=== PATIENT | female | born 1950 | race Caucasian/White ===

== ENCOUNTER → 2016-11-18 07:46 | Outpatient (CLI) | payer MEDICARE, BC | END | disposition home or self-care (01) | LOC: D.NM 07:46 | DX: R10.11 Right upper quadrant pain (principal) ==

== ENCOUNTER → 2018-03-26 08:28 | Outpatient (CLI) | payer MEDICARE, BC ==
--- NOTE | ~2018-03-26 | ST ---
PATIENT:LANCE DAY MEDICAL RECORD: [id number] SEX: F LOCATION:[facility] ORDER #: ADMISSION DATE: 03/26/18 AGE OF PATIENT: 67 REFERRING PHYSICIAN: INTERPRETING PHYSICIAN: BELIA WEINER MD DATE OF SERVICE: 03/26/2018 NUCLEAR STRESS TEST INDICATION: Chest pain, abnormal ECG. She was exercised on the standard En protocol for 5 minutes. She made a max target heart rate response greater than 100% with 33 mCi of sestamibi injected at peak stress. A 11 mCi were used previously for rest images. FINDINGS: Gated SPECT reveals preserved ejection fraction at 64% with good wall motion and thickening and brightening throughout all segments. SPECT imaging Cardiolite was used as myocardial fusion agent. There is homogeneous uptake throughout all segments at rest and stress with no evidence of inducible ischemia or previous infarction. OVERALL IMPRESSION: 1. This is a normal nuclear stress test with no evidence of inducible ischemia or previous infarction. 2. Gated SPECT reveals a preserved ejection fraction at 64%. In this patient with ongoing symptomatology, the current scan does not suggest the presence of hemodynamically significant coronary artery disease. Evaluate noncardiac etiology of chest pain. TRANSINT:[id number] Voice Confirmation ID: [id number] DOCUMENT ID: [id number] BELIA WEINER MD at 1025 CC: NICO KING MD [id number] DICTATION DATE: 03/26/18 170 CONTENT ADMINISTRATOR: 03/27/18 0743 DEP CLI 03/26/18 [id number] [place] [address]
== END | disposition home or self-care (01) ==
LOC: D.HCCARDIO 08:28
DX: R07.9 Chest pain, unspecified (principal)